=== PATIENT | male | born 1970 | race Caucasian/White ===

== ENCOUNTER 2017-04-20 23:05 | Observation (INO) | payer OTHER ==
[~2017-04-20] VITALS: Ht 172.7 cm; Wt 122.5 kg
[2017-04-20 23:23] VITALS: PULSE 47; PULSE 79
[2017-04-20] MEDS ORDERED: METF500T4 PO (23:34)
[2017-04-20] MEDS ORDERED: POTA10TA18 PO (23:34)
[2017-04-20] MEDS ORDERED: GABA300C16 PO (23:34)
[2017-04-20] MEDS ORDERED: ATOR40TA68 PO (23:34)
[2017-04-20] MEDS ORDERED: NPH,100I5 SQ (23:34)
[2017-04-20] MEDS ORDERED: MELO7.5O PO (23:34)
[2017-04-20] MEDS ORDERED: FURO40SO PO (23:34)
[2017-04-20] MEDS ORDERED: POTA20LI5 PO (23:34)
[2017-04-20] MEDS ORDERED: RIVA15TA PO (23:34)
[2017-04-20] MEDS ORDERED: CARV3.1260 PO (23:34)
[2017-04-20] MEDS ORDERED: LISI20TA11 PO (23:34)
[2017-04-20 23:37] VITALS: Ht 172.7 cm; Wt 122.5 kg
[2017-04-21] VITALS (13 sets, daily range): BP systolic 116–174; BP diastolic 76–117; PULSE 42–83; RESP 15–20
[2017-04-21] MEDS ORDERED: INSULIN GLARGINE [LANtus] 3 ML PEN SC ONE (01:00)
[2017-04-21] MEDS ORDERED: GLUCAGON 1 MG INJ IM PRN (01:30)
[2017-04-21] MEDS ORDERED: GLUCOSE GEL 15 GRAM TUBE PO PRN ×2 (01:30)
[2017-04-21] MEDS ORDERED: GLUCOSE GEL 15 GRAM TUBE BUCCAL PRN (01:30)
[2017-04-21] MEDS ORDERED: DEXTROSE 50% 50 ML SYRINGE IV PRN ×2 (01:30)
[2017-04-21] MEDS: ACCU-CHEK XX SCH ×2 (02:04)
[2017-04-21] MEDS ORDERED: NACL 0.9% 3 ML SYG IV SCH (02:30)
[2017-04-21] MEDS ORDERED: ONDANSETRON 4 MG TAB PO PRN (02:30)
[2017-04-21] MEDS ORDERED: ACETAMINOPHEN 325 MG TAB PO PRN (02:30)
[2017-04-21] MEDS ORDERED: ZOLPIDEM 5 MG TAB PO PRN (02:30)
[2017-04-21] MEDS ORDERED: DOCUSATE SODIUM 100 MG CAP PO PRN (02:30)
[2017-04-21] MEDS: FAMOTIDINE 20 MG TAB PO SCH ×2 (04:21→20:21)
[2017-04-21 07:30] LABS: BASOPHIL # 0.1 10^3/ul (0.0-0.1); BASOPHILS % 1.1 % (0.0-2.0); EOSINOPHILS # 0.2 10^3/ul (0.0-0.5); EOSINOPHILS % 1.9 % (0.0-7.0); HEMATOCRIT 45.5 % (42.0-52.0); HEMOGLOBIN 14.7 g/dl (14.0-18.0); LYMPHOCYTES % 12.2 % (15.0-51.0); MEAN CORPUSCULAR HEMOGLOBIN 30.1 pg (29.0-33.0); MEAN CORPUSCULAR HGB CONC 32.3 g/dl (32.0-37.0); MEAN CORPUSCULAR VOLUME 93.2 fl (82.0-101.0); MEAN PLATELET VOLUME 11.6 fl (7.4-10.4); MONOCYTE # 0.9 10^3/ul (0.3-0.9); MONOCYTES % 10.1 % (0.0-11.0); NEUTROPHIL # 6.3 10^3/ul (1.6-7.5); NEUTROPHILS % 74.5 % (39.0-77.0); PLATELET COUNT 180 10^3/UL (140-415); RED BLOOD COUNT 4.88 10^6/ul (4.70-6.10); RED CELL DISTRIBUTION WIDTH 14.9 % (11.5-14.5); WHITE BLOOD COUNT 8.4 10^3/ul (4.8-10.8)
[2017-04-21 07:45] LABS: D-DIMER 717.64 ng/ml (<460)
[2017-04-21 07:48] LABS: CALCIUM 8.7 mg/dl (8.4-10.2); CHOL/HDL RATIO 3.5 RATIO; CREATININE 0.74 mg/dl (0.61-1.24); POTASSIUM 3.9 mmol/L (3.5-5.1)
[2017-04-21 07:58] LABS: CK-MB 4.3 ng/ml (0.0-2.4); TROPONIN-I 0.074 ng/ml (0.00-0.12)
[2017-04-21] MEDS: GABAPENTIN 300 MG CAP PO SCH ×3 (08:14→20:22)
[2017-04-21] MEDS: metFORMIN 500 MG TAB PO SCH ×2 (08:14→17:22)
[2017-04-21] MEDS: RIVAROXABAN 15 MG TABLET PO SCH ×2 (08:14→20:22)
[2017-04-21] MEDS: LISINOPRIL 20 MG TAB PO SCH (08:15)
[2017-04-21 08:17] LABS: THYROID STIMULATING HORMONE 0.643 MIU/L (0.465-4.680)
[2017-04-21] MEDS: INSULIN ASPART [NOVOLOG] 3 ML PEN SC SCH ×4 (08:18→20:22)
--- NOTE | 2017-04-21 11:17 | HP ---
Date/Time of Note Date/Time of Note DATE: 04/21/17 TIME: 11:17 Assessment/Plan VTE Prophylaxis VTE Prophylaxis Intervention: other (xarelto) Lines/Catheters IV Catheter Type (from [facility]): Saline Lock Assessment/Plan Assessment/Plan [facility] 1. 47yo man with previous myocardial infarctions, diabetes, hypertension, and active smoking, who experienced chest pain last night and presented to [facility] with elevated troponin. Two additional troponins here were stably elevated. Probable NSTEMI, with no active pain, dyspnea, nausea or lightheadedness now. 2. Critical aortic stenosis, awaiting replacement surgery. 3. Type 2 diabetes, with HgbA1c of 8.1% signifying sub-par glucose control. 4. Hyperlipidemia, with measured triglycerides of 150mg/dl and total cholesterol of 66 on Lipitor. 5. Active smoking * Admit to telemetry * Will pursue obtaining dental evaluation on Saturday * Cardiology consultation * Echocardiography performed last month at [facility]; obtain records * Continue carvedilol * Fasting lipids this morning * Nicotine 14mg/24h patch * Famotidine for GI prevention * Urgent smoking cessation * Accuchecks qAC and qHS * Continue Xarelto * Cardiac diet * Obtain old records * Patient is full-code Anoop Seaman MD PhD [phone] HPI/ROS Admit Date/Time Admit Date/Time Apr 20, 2017 at 23:12 Hx of Present Illness 47yo man with critical aortic stenosis, pulmonary embolism on Xarelto, and a history of previous VA and CHF who presented yesterday at [facility] with recurrent chest pain. Aortic valve replacement surgery has been planned for him, pending resolution of issues related to dental problems, but he has not followed-up on these recommendations. Cardiac risk factors include diabetes , hypertension, and active smoking (1 pack per day). He was hospitalized four weeks ago at [facility] for a possible CHF exacerbation, after presenting at [facility] ER with dyspnea but no chest pain. Most recent EF on echo was 40%. Records from that hospitalization indicate he had an VA in January, presenting at [facility], where he was also diagnosed with a deep venous thrombosis and pulmonary embolism. He subsequently was off Xarelto for a period of weeks. He uses nighttime oxygen, and an issue of possible obstructive sleep apnea has been raised. Cardiac surgery evaluation for an aortic valve area of 0.9cm2 performed by Dr. Jose. ROS No headache, visual change, radiation to the arms or back, nausea, or change in bowel habitus. 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 Smoking Status: Current every day smoker Exam/Review of Systems Vital Signs Vitals Vital Signs Date Time Temp Pulse Resp B/P Pulse Ox O2 Delivery O2 Flow Rate FiO2 04/21/17 08:30 Nasal Cannula 2.0 04/21/17 08:22 98.6 77 18 174/117 97 Intake and Output 04/20/17 04/20/17 04/21/17 15:00 23:00 07:00 Intake Total 250 ml Balance 250 ml Exam Constitutional: alert, oriented, well developed Psych: nl mood/affect, no complaints, No anxiety, No confusion, No depression Head: atraumatic, normocephalic Eyes: EOMI, PERRL, nl conjunctiva ENMT: mucosa pink and moist Neck: non-tender, supple, No bruits, No jvd, No masses, No nuchal rigidity, No thyromegaly Respiratory: clear to auscultation, normal air movement, No congested cough, No crackles/rales, No diminished breath sounds, No intercostal retraction, No labored breathing, No respirations, No wheezing Cardiovascular: nl pulses, regular rate and rhythm, systolic murmur Gastrointestinal: bowel sounds, nl liver, spleen, non-tender, soft, No ascites, No distended, No firm, No hepatomegaly, No mass, No rebound or guarding, No splenomegaly Genitourinary - Male: No CVA tenderness Musculoskeletal: muscle tone, nl extremities to inspection, range of motion, No joint tenderness, No muscle weakness, No spine non-tender, No swelling Extremities: normal pulses, No calf tenderness, No clubbing, No cyanosis, No edema, No palpable cord, No pitting pedal edema, No tenderness Neurological: GOVERNMENT AUDITOR II-XII intact, DTR's symmetric, nl mental status, nl speech, nl strength Skin: nl turgor, No diaphoresis, No ecchymosis, No laceration, No rash or lesions Lymph: nl lymph nodes Labs Result Diagram: 04/21/17 0649 04/21/17 0649 Medications Medications Current Medications Diagnostic Test (Pha) (Accu-Chek) 1 ea 02 XX Last administered on 04/21/17 02 :04; Admin Dose 1 EA; Start 04/21/17 at 02:00 Diagnostic Test (Pha) (Accu-Chek) 1 ea XX Last administered on 04/21/17 02 :04; Admin Dose 1 EA; Start 04/21/17 at 02:00 Miscellaneous Information 1 ea NOTE XX ; Start 04/21/17 at 01:30 Glucose (Glutose) 15 gm Q15M PRN PO DECREASED GLUCOSE; Start 04/21/17 at 01:30 Glucose (Glutose) 22.5 gm Q15M PRN PO DECREASED GLUCOSE; Start 04/21/17 at 01: 30 Dextrose (D50w Syringe) 25 ml Q15M PRN IV DECREASED GLUCOSE; Start 04/21/17 at 01:30 Dextrose (D50w Syringe) 50 ml Q15M PRN IV DECREASED GLUCOSE; Start 04/21/17 at 01:30 Glucagon (Glucagen) 1 mg Q15M PRN IM DECREASED GLUCOSE; Start 04/21/17 at 01: 30 Glucose (Glutose) 15 gm Q15M PRN BUCCAL DECREASED GLUCOSE; Start 04/21/17 at 01:30 Ondansetron HCl (Zofran Tab) 4 mg Q6H PRN PO NAUSEA AND/OR VOMITING; Start at 02:30 Acetaminophen (Tylenol Tab) 650 mg Q6H PRN PO PAIN LEVEL 1-3 OR FEVER; Start 04/21/17 at 02:30 Acetaminophen/ Hydrocodone Bitart ([place] (5/325)) 1 tab Q6H PRN PO PAIN LEVEL 4 -6; Start 04/21/17 at 02:30 Zolpidem Tartrate (Ambien) 5 mg QHS PRN PO INSOMNIA; Start 04/21/17 at 02:30 Docusate Sodium (Colace) 100 mg Q12H PRN PO CONSTIPATION; Start 04/21/17 at 02 :30 Famotidine (Pepcid) 20 mg Q12 PO Last administered on 04/21/17 04:21; Admin Dose 20 MG; Start 04/21/17 at 02:30 Atorvastatin Calcium (Lipitor) 40 mg QHS PO ; Start 04/21/17 at 21:00 Carvedilol (Coreg) 3.125 mg BID PO Last administered on 04/21/17 08:15; Admin Dose 3.125 MG; Start 04/21/17 at 09:00 Gabapentin (Neurontin) 600 mg TID PO Last administered on 04/21/17 08:14; Admin Dose 600 MG; Start 04/21/17 at 09:00 Lisinopril (Zestril) 20 mg DAILY PO Last administered on 04/21/17 08:15; Admin Dose 20 MG; Start 04/21/17 at 09:00 Rivaroxaban (Xarelto) 15 mg BID PO Last administered on 04/21/17 08:14; Admin Dose 15 MG; Start 04/21/17 at 09:00 Insulin Glargine (Lantus) 40 unit DAILY@20 SC ; Start 04/21/17 at 20:00 Influenza Virus Vaccine (Fluzone) 0.5 ml ONCE ONCE IM* ; Start 04/22/17 at 09: 00; Stop 04/22/17 at 09:01 ARIANNA SEAMAN M.D. Apr 21, 2017 11:17
[2017-04-21] MEDS ORDERED: hydrALAzine 20 MG INJ IV PRN (11:30)
[2017-04-21 11:36] LABS: TROPONIN-I 0.056 ng/ml (0.00-0.12)
[2017-04-21 12:04] LABS: CK-MB 4.17 ng/ml (0.0-2.4)
[2017-04-21] MEDS: ATORVASTATIN 40 MG TAB PO SCH (20:22)
[2017-04-21] MEDS: INSULIN GLARGINE [LANtus] 3 ML PEN SC SCH (20:25)
[2017-04-22] VITALS (12 sets, daily range): BP systolic 124–160; BP diastolic 85–103; PULSE 60–78; RESP 19–20
[2017-04-22] MEDS: ACCU-CHEK XX SCH ×2 (02:31)
[2017-04-22] MEDS: HYDROCODONE/APAP (5/325) TAB PO PRN ×3 (04:03→21:15)
[2017-04-22] MEDS: INSULIN ASPART [NOVOLOG] 3 ML PEN SC SCH ×4 (08:00→21:00)
[2017-04-22] MEDS ORDERED: INFLUENZA VIRUS VACCINE 0.5 ML (DISPENSING) IM* ONE (09:00)
[2017-04-22] MEDS: GABAPENTIN 300 MG CAP PO SCH ×3 (09:00→21:16)
[2017-04-22] MEDS: RIVAROXABAN 15 MG TABLET PO SCH (09:00)
[2017-04-22] MEDS ORDERED: NICOTINE (14 MG/24 HR) PATCH TRANSDERM SCH (09:00)
[2017-04-22] MEDS: FAMOTIDINE 20 MG TAB PO SCH ×2 (09:01→21:16)
[2017-04-22] MEDS: LISINOPRIL 20 MG TAB PO SCH (09:01)
[2017-04-22] MEDS: metFORMIN 500 MG TAB PO SCH ×2 (09:01→17:31)
--- NOTE | 2017-04-22 17:55 | CONS ---
Date/Time of Note Date/Time of Note DATE: 04/22/17 TIME: 17:49 Assessment/Plan Assessment/Plan Additional Assessment/Plan Chest pain Severe aortic stenosis Coronary artery disease Pulmonary emboli Hypertension Medication compliance Active tobacco use -Patient with known history of aortic stenosis and coronary disease and he is pending aortic valve replacement and CABG. Patient was to have a dental evaluation but unfortunately has not been compliant. Furthermore he has been noncompliant with medications as well as continued smoking. Troponins at outside facility initial was 0.11 but serial troponins done at our facility have all been unremarkable. Agree with antiplatelet therapy, anticoagulation, lipid management. Of importance is patient to be compliant with medications, smoking cessation and dental workup to proceed with his known cardiac issues. Would consider adjusting anticoagulant dosing Consultation Date/Type/Reason Admit Date/Time Apr 20, 2017 at 23:12 Type of Consultation: cv Reason for Consultation Chest pain Hx of Present Illness This is a 47-year-old male with history of aortic stenosis, coronary artery disease, pulmonary emboli, active tobacco use who presents with chest pain. Symptoms began approximately day and a half ago. Symptoms are occasionally worse with activity. He feels much better today. He does admit to noncompliance with his medications. He has been seeing a CT surgeon for aortic valve replacement and likely concurrent CABG but has not followed up with dental evaluation for clearance. He does still actively smoke and is noncompliant with his medications. He currently denies any chest pain, shortness of breath, abdominal pain, cough or fevers or chills. 12 point review of systems was performed with all pertinent positives and negatives mentioned above and all else is negative Psychological: nl mood/affect, no complaints, No anxiety, No confusion, No depression Past Medical History Medical History: congestive heart failure, coronary artery disease, deep vein thrombosis, diabetes, high cholesterol, hypertension, other (Severe obesity, previously 175 kg but has lost weight to current 122kg.) Social History Smoking Status: Current every day smoker Exam/Review of Systems Vital Signs Vitals Vital Signs Date Time Temp Pulse Resp B/P Pulse Ox O2 Delivery O2 Flow Rate FiO2 04/22/17 16:00 78 04/22/17 15:49 98.0 20 124/88 98 04/22/17 08:00 Nasal Cannula 2.0 Intake and Output 04/21/17 04/21/17 04/22/17 15:00 23:00 07:00 Intake Total 960 ml 500 ml Balance 960 ml 500 ml Exam No apparent distress, able to speak in complete sentences Constitutional: alert, obese, oriented Head: normocephalic Respiratory: other (Coarse breath sounds bilaterally, no wheezing) Cardiovascular: regular rate and rhythm, systolic murmur Gastrointestinal: bowel sounds, non-tender, soft Extremities: edema (Trace) Results Result Diagram: 04/21/17 0649 04/21/17 0649 Results 24 hrs Laboratory Tests Test 04/21/17 20:20 04/22/17 02:30 04/22/17 08:04 04/22/17 12:06 Bedside Glucose 119 122 104 106 Test 04/22/17 17:30 Bedside Glucose 177 Medications Medications Current Medications Diagnostic Test (Pha) (Accu-Chek) 1 ea 02 XX Last administered on 04/22/17 02 :31; Admin Dose 1 EA; Start 04/21/17 at 02:00 Diagnostic Test (Pha) (Accu-Chek) 1 ea 02 XX Last administered on 04/22/17 02 :31; Admin Dose 1 EA; Start 04/21/17 at 02:00 Miscellaneous Information 1 ea NOTE XX ; Start 04/21/17 at 01:30 Glucose (Glutose) 15 gm Q15M PRN PO DECREASED GLUCOSE; Start 04/21/17 at 01:30 Glucose (Glutose) 22.5 gm Q15M PRN PO DECREASED GLUCOSE; Start 04/21/17 at 01: 30 Dextrose (D50w Syringe) 25 ml Q15M PRN IV DECREASED GLUCOSE; Start 04/21/17 at 01:30 Dextrose (D50w Syringe) 50 ml Q15M PRN IV DECREASED GLUCOSE; Start 04/21/17 at 01:30 Glucagon (Glucagen) 1 mg Q15M PRN IM DECREASED GLUCOSE; Start 04/21/17 at 01: 30 Glucose (Glutose) 15 gm Q15M PRN BUCCAL DECREASED GLUCOSE; Start 04/21/17 at 01:30 Ondansetron HCl (Zofran Tab) 4 mg Q6H PRN PO NAUSEA AND/OR VOMITING; Start at 02:30 Acetaminophen (Tylenol Tab) 650 mg Q6H PRN PO PAIN LEVEL 1-3 OR FEVER Last administered on 04/22/17 09:00; Admin Dose 650 MG; Start 04/21/17 at 02:30 Acetaminophen/ Hydrocodone Bitart ([place] (5/325)) 1 tab Q6H PRN PO PAIN LEVEL 4 -6 Last administered on 04/22/17 13:10; Admin Dose 1 TAB; Start 04/21/17 at 02:30 Zolpidem Tartrate (Ambien) 5 mg QHS PRN PO INSOMNIA; Start 04/21/17 at 02:30 Docusate Sodium (Colace) 100 mg Q12H PRN PO CONSTIPATION; Start 04/21/17 at 02 :30 Famotidine (Pepcid) 20 mg Q12 PO Last administered on 04/22/17 09:01; Admin Dose 20 MG; Start 04/21/17 at 02:30 Atorvastatin Calcium (Lipitor) 40 mg QHS PO Last administered on 04/21/17 20: 22; Admin Dose 40 MG; Start 04/21/17 at 21:00 Carvedilol (Coreg) 3.125 mg BID PO Last administered on 04/22/17 09:01; Admin Dose 3.125 MG; Start 04/21/17 at 09:00 Gabapentin (Neurontin) 600 mg TID PO Last administered on 04/22/17 12:07; Admin Dose 600 MG; Start 04/21/17 at 09:00 Lisinopril (Zestril) 20 mg DAILY PO Last administered on 04/22/17 09:01; Admin Dose 20 MG; Start 04/21/17 at 09:00 Rivaroxaban (Xarelto) 15 mg BID PO Last administered on 04/22/17 09:00; Admin Dose 15 MG; Start 04/21/17 at 09:00 Insulin Glargine (Lantus) 40 unit DAILY@20 SC Last administered on 04/21/17 20:25; Admin Dose 40 UNIT; Start 04/21/17 at 20:00 Hydralazine HCl (Apresoline) 10 mg Q4H PRN IV SBP > 160; Start 04/21/17 at 11: 30 Nicotine (Nicoderm 14 Mg/ 24hr) 1 patch DAILY TRANSDERM Last administered on 09:02; Admin Dose 1 PATCH; Start 04/22/17 at 09:00 Procedures Procedures ECG done 102 demonstrates sinus rhythm at 79 bpm, incomplete left bundle branch block with QRS 116 ms, no significant STT wave abnormalities Anil Rodriguez DO Apr 22, 2017 17:55
--- NOTE | 2017-04-22 18:55 | PN ---
Date/Time of Note Date/Time of Note DATE: 04/22/17 TIME: 18:39 Assessment/Plan VTE Prophylaxis VTE Prophylaxis Intervention: other (On Xarelto) Lines/Catheters IV Catheter Type (from [place]): Saline Lock Assessment/Plan Assessment/Plan 47 yo man: 1. Chest pain with known myocardial infarction and critical aortic stenosis who presented at [place] with chest pain, reported elevated troponin, troponin has been negative here at [facility]. Patient apparently also with a history of pulmonary embolus for which he has been on Xarelto until recently when he decided to stop it for unclear reason, I have discussed with cardiology and the patient he will resume his Xarelto 20 mg p.o. daily. Cardiac enzymes have been negative here, patient has been evaluated by cardiology, he has a pending aortic valve replacement and already being seen by cardiothoracic surgery, they are still waiting for the patient to take care of his dentition prior to scheduling him for surgery. Patient today states that he will go to the dentist as soon as possible. Per cardiology okay to discharge patient today. Patient also needs to be more compliant with medications and tobacco cessation. He still smoking. 2. Type 2 diabetes, with HgbA1c of 8.1. Continue home medications. Patient is more compliant with diet and medication. Weight loss is encouraged 3. Hyperlipidemia: Continue statins 4. Reported pulmonary embolus: Patient to resume his Xarelto at home, he has been encouraged to stay on it for treatment of pulmonary embolus, he can resume his maintenance dosage of 20 mg daily. 5. Chronic hypoxemia, patient is oxygen dependent at home, apparently he takes off the oxygen to go smoke. 6. Tobacco use, still actively smoking Prophylaxis: Patient already on Xarelto, Pepcid for GI prophylaxis if needed Disposition: Appreciate cardiology evaluation, okay to discharge home today, patient is to follow-up urgently with a dentist so that he can have his evaluation and treatment required as an outpatient and proceed with his cardiac surgery afterwards. Exam/Review of Systems Vital Signs Vitals Vital Signs Date Time Temp Pulse Resp B/P Pulse Ox O2 Delivery O2 Flow Rate FiO2 04/22/17 16:00 78 04/22/17 15:49 98.0 20 124/88 98 04/22/17 08:00 Nasal Cannula 2.0 Intake and Output 04/21/17 04/21/17 04/22/17 15:00 23:00 07:00 Intake Total 960 ml 500 ml Balance 960 ml 500 ml Exam Constitutional: alert, obese (Morbid), oriented Respiratory: clear to auscultation, normal air movement Cardiovascular: murmurs/extra sounds (Critical aortic stenosis), nl pulses, regular rate and rhythm Gastrointestinal: non-tender, soft Musculoskeletal: nl extremities to inspection Extremities: normal pulses, other (No edema, clubbing or cyanosis) Neurological: ELECTRICAL ESTIMATOR II-XII intact, nl mental status, nl speech, nl strength Results Result Diagram: 04/21/17 0649 04/21/17 0649 Results 24 hrs Laboratory Tests Test 04/21/17 20:20 04/22/17 02:30 04/22/17 08:04 04/22/17 12:06 Bedside Glucose 119 122 104 106 Test 04/22/17 17:30 Bedside Glucose 177 Medications Medications Current Medications Diagnostic Test (Pha) (Accu-Chek) 1 ea 02 XX Last administered on 04/22/17 02 :31; Admin Dose 1 EA; Start 04/21/17 at 02:00 Diagnostic Test (Pha) (Accu-Chek) 1 ea 02 XX Last administered on 04/22/17 02 :31; Admin Dose 1 EA; Start 04/21/17 at 02:00 Miscellaneous Information 1 ea NOTE XX ; Start 04/21/17 at 01:30 Glucose (Glutose) 15 gm Q15M PRN PO DECREASED GLUCOSE; Start 04/21/17 at 01:30 Glucose (Glutose) 22.5 gm Q15M PRN PO DECREASED GLUCOSE; Start 04/21/17 at 01: 30 Dextrose (D50w Syringe) 25 ml Q15M PRN IV DECREASED GLUCOSE; Start 04/21/17 at 01:30 Dextrose (D50w Syringe) 50 ml Q15M PRN IV DECREASED GLUCOSE; Start 04/21/17 at 01:30 Glucagon (Glucagen) 1 mg Q15M PRN IM DECREASED GLUCOSE; Start 04/21/17 at 01: 30 Glucose (Glutose) 15 gm Q15M PRN BUCCAL DECREASED GLUCOSE; Start 04/21/17 at 01:30 Ondansetron HCl (Zofran Tab) 4 mg Q6H PRN PO NAUSEA AND/OR VOMITING; Start at 02:30 Acetaminophen (Tylenol Tab) 650 mg Q6H PRN PO PAIN LEVEL 1-3 OR FEVER Last administered on 04/22/17 09:00; Admin Dose 650 MG; Start 04/21/17 at 02:30 Acetaminophen/ Hydrocodone Bitart ([place] (5/325)) 1 tab Q6H PRN PO PAIN LEVEL 4 -6 Last administered on 04/22/17 13:10; Admin Dose 1 TAB; Start 04/21/17 at 02:30 Zolpidem Tartrate (Ambien) 5 mg QHS PRN PO INSOMNIA; Start 04/21/17 at 02:30 Docusate Sodium (Colace) 100 mg Q12H PRN PO CONSTIPATION; Start 04/21/17 at 02 :30 Famotidine (Pepcid) 20 mg Q12 PO Last administered on 04/22/17 09:01; Admin Dose 20 MG; Start 04/21/17 at 02:30 Atorvastatin Calcium (Lipitor) 40 mg QHS PO Last administered on 04/21/17 20: 22; Admin Dose 40 MG; Start 04/21/17 at 21:00 Carvedilol (Coreg) 3.125 mg BID PO Last administered on 04/22/17 09:01; Admin Dose 3.125 MG; Start 04/21/17 at 09:00 Gabapentin (Neurontin) 600 mg TID PO Last administered on 04/22/17 12:07; Admin Dose 600 MG; Start 04/21/17 at 09:00 Lisinopril (Zestril) 20 mg DAILY PO Last administered on 04/22/17 09:01; Admin Dose 20 MG; Start 04/21/17 at 09:00 Rivaroxaban (Xarelto) 15 mg BID PO Last administered on 04/22/17 09:00; Admin Dose 15 MG; Start 04/21/17 at 09:00 Insulin Glargine (Lantus) 40 unit DAILY@20 SC Last administered on 04/21/17 20:25; Admin Dose 40 UNIT; Start 04/21/17 at 20:00 Hydralazine HCl (Apresoline) 10 mg Q4H PRN IV SBP > 160; Start 04/21/17 at 11: 30 Nicotine (Nicoderm 14 Mg/ 24hr) 1 patch DAILY TRANSDERM Last administered on t 09:02; Admin Dose 1 PATCH; Start 04/22/17 at 09:00 SEAN TEJADA Apr 22, 2017 18:52
--- NOTE | 2017-04-22 18:56 | PDOCDIS ---
Discharge Instructions CONDITION Patient Condition: Stable HOME CARE INSTRUCTIONS: Special Diet: CARDIAC ACTIVITY: Activity Restrictions: Slowly Increase Activity FOLLOW UP/APPOINTMENTS Follow-up Plan Follow-up with primary care physician within 1 week Follow-up with a dentist urgently within 24-48 hours Follow-up with cardiothoracic surgery after dentist is seen and at the appropriate dental work is done Follow-up with cardiology as outpatient and as needed within 1-2 weeks SEAN TEJADA Apr 22, 2017 18:56
[2017-04-22] MEDS ORDERED: NICO1PAT6 TD (18:58)
[2017-04-22] MEDS ORDERED: RIVA20TA PO (18:58)
[2017-04-22] MEDS ORDERED: RIVAROXABAN 20 MG TABLET PO SCH (19:30)
[2017-04-22] MEDS: ATORVASTATIN 40 MG TAB PO SCH (21:16)
[2017-04-22] MEDS: INSULIN GLARGINE [LANtus] 3 ML PEN SC SCH (21:27)
--- NOTE | 2017-04-23 14:04 | RADRPT ---
Echocardiogram Report Patient Name: MARCELL PADILLA Gender: Male Date: 1970 Study Date: 22-Apr-2017 Ship'[employer] Carpenter: NAOMIE Location: 5548 Ref. Physician: ANIL RODRIGUEZ Quality: Good Procedures: Transthoracic echocardiogram with complete 2D, M-Mode, and doppler examination. Indications: Congestive Heart Failure. 2D/M Mode Doppler Measurement Value Normal Ranges Measurement Value Normal Ranges AoR Diam MM 3.1 cm MADHAVI Vmax 1.0 cm2 LA/Ao MM 1.4 MADHAVI VTI 1.0 cm2 LA Dimen MM 4.4 cm AV Mean Ghassan 2.3 m/sec LVIDd 2D 6.2 3.5 - 5.6 cm AV Mean PG 23.6 mmHg LVIDs 2D 5.7 2.1 - 4.1 cm AV Peak Ghassan 3.3 m/sec LVPWd 2D 1.4 0.6 - 1.1 cm AV Peak PG 43.0 mmHg IVSd 2D 1.4 0.6 - 1.1 cm AV VTI 68.7 cm EDV 2D 195.2 cm3 LVOT Mean Ghassan 0.9 m/sec ESV 2D 180.7 cm3 LVOT Mean PG 3.2 mmHg LVOT Diam 1.9 cm LVOT Peak Ghassan 1.1 m/sec LVOT Peak PG 5.2 mmHg LVOT VTI 24.5 cm MV E Peak Ghassan 0.9 m/sec MV A Peak Ghassan 0.6 m/sec MV E/A 1.6 MV Decel Time 105 msec MV Decel [place] 9 MV E/A 1.6 TR Peak Ghassan 2.8 m/sec TR Peak PG 32.2 mmHg RVSP 40.0 mmHg RA Pressure 8.0 Findings Left Ventricle: Mild concentric left ventricular hypertrophy. Moderate enlargement of left ventricle cavity. Severe left ventricular systolic dysfunction. Ejection fraction is visually estimated at 25 %. Tissue Doppler/Mitral Doppler indices are consistent with pseudonormalization with mildly elevated left atrial pressure (Stage II diastolic dysfunction). Right Ventricle: Normal right ventricular size. Moderate right ventricular systolic dysfunction. Left Atrium: There is mild enlargement of left atrium. Right Atrium: Right atrium at upper limits of normal. Mitral Valve: Normal appearance and function of the mitral valve with trace physiologic regurgitation. Aortic Valve: Moderate aortic stenosis. Mean PG 23.60 mmHg. Aortic cusps appear moderate-severely calcified. Mild aortic valve regurgitation. Tricuspid Valve: Normal appearance of the tricuspid valve. Estimated peak PA systolic pressure 40 mmHg. There is mild tricuspid regurgitation. Pulmonic Valve: Normal pulmonic valve appearance. There is trace pulmonic regurgitation. Pericardium: Normal pericardium with no significant pericardial effusion. Aorta: Normal aortic root. IVC: Dilated IVC with respiratory collapse consistent with elevated right atrial pressure. Conclusions 1.Mild concentric left ventricular hypertrophy. Moderate enlargement of left ventricle cavity. Severe left ventricular systolic dysfunction. Ejection fraction is visually estimated at 25 %. Tissue Doppler/Mitral Doppler indices are consistent with pseudonormalization with mildly elevated left atrial pressure (Stage II diastolic dysfunction). 2.Normal right ventricular size. Moderate right ventricular systolic dysfunction. 3.There is mild enlargement of left atrium. 4.Right atrium at upper limits of normal. 5.Moderate aortic stenosis. Mild aortic valve regurgitation. 6.Estimated peak PA systolic pressure 40 mmHg. There is mild tricuspid regurgitation. 7.Normal appearance and function of the mitral valve with trace physiologic regurgitation. 8.Normal pericardium with no significant pericardial effusion. Electronically Signed By: Anil Rodriguez 23-Apr-2017 14:03:29 0700 Patient Name: MARCELL PADILLA Study Date: 22-Apr-2017 [id number]
[2017-04-23] MEDS ORDERED: RIVAROXABAN 20 MG TABLET PO SCH (18:05)
== END 2017-04-22 23:04 | disposition home or self-care (01) ==
LOC: MS4 23:12 → INTOOBSV 23:12
PROVIDERS: ADMIT Internal Medicine; ATTEND Internal Medicine
DX: R07.9 Chest pain, unspecified (principal); I35.0 Nonrheumatic aortic (valve) stenosis; I25.10 Atherosclerotic heart disease of native coronary artery without angina pectoris; I26.99 Other pulmonary embolism without acute cor pulmonale; E11.9 Type 2 diabetes mellitus without complications; E78.5 Hyperlipidemia, unspecified; R09.02 Hypoxemia; Z99.81 Dependence on supplemental oxygen; Z72.0 Tobacco use; I11.0 Hypertensive heart disease with heart failure; I50.9 Heart failure, unspecified; E78.00 Pure hypercholesterolemia, unspecified; E66.9 Obesity, unspecified; Z68.41 Body mass index [BMI] 40.0-44.9, adult; Z79.4 Long term (current) use of insulin; Z23 Encounter for immunization; Z83.3 Family history of diabetes mellitus
CPT/HCPCS: 80048; 80061; 82550; 82553; 82962; 83036; 84443; 84484; 85025; 85378; 85651; 90686; 93306; J1815; Z7500; Z7610; 99217; G0378

== ENCOUNTER 2017-05-06 19:07 | Emergency (ER) | payer OTHER ==
[~2017-05-06] VITALS: Ht 172.7 cm; Wt 113.6 kg
[~2017-05-06 19:07] MED LIST: ATOR40TA68 PO; CARV3.1260 PO; FURO40SO PO; GABA300C16 PO; LISI20TA11 PO; MELO7.5O PO; METF500T4 PO; NICO1PAT6 TD; NPH,100I5 SQ; POTA10TA18 PO; POTA20LI5 PO; RIVA20TA PO
[2017-05-06] MEDS ORDERED: FUROSEMIDE 40 MG INJ ONE (19:12)
[2017-05-06] MEDS ORDERED: ASPIRIN 81 MG TAB ONE (19:13)
[2017-05-06] MEDS ORDERED: NITROGLYCERIN 2% 1 GM OINT PKT ONE (19:13)
[2017-05-06] MEDS ORDERED: NITROGLYCERIN (SL) 0.4 MG TAB ONE (20:41)
[2017-05-06] MEDS ORDERED: FUROSEMIDE 40 MG INJ IV SCH (22:30)
[2017-05-06] MEDS ORDERED: ASPIRIN 81 MG TAB PO SCH (22:30)
[2017-05-06] MEDS ORDERED: NITROGLYCERIN 2% 1 GM OINT PKT TD SCH (22:30)
[2017-05-06] MEDS ORDERED: LISINOPRIL 20 MG TAB PO SCH (22:30)
[2017-05-06] MEDS ORDERED: hydrALAzine 20 MG INJ ONE (22:54)
[2017-05-06] MEDS ORDERED: hydrALAzine 20 MG INJ IV ONE (23:00)
[2017-05-07] MEDS ORDERED: ONDANSETRON 4 MG INJ IV PRN (00:30)
[2017-05-07] MEDS ORDERED: hydrALAzine 20 MG INJ IV PRN (00:30)
[2017-05-07] MEDS ORDERED: AZITHROMYCIN 500 MG in SOD CHLORIDE 0.9% 250 ML IVPB SCH (01:00)
[2017-05-07] MEDS ORDERED: ACCU-CHEK XX SCH (02:00)
[2017-05-07] MEDS: ALBUTEROL/IPRATROPIUM (NEB) 3 ML AMP HHN SCH ×2 (02:15→09:34)
[2017-05-07 06:00] VITALS: TEMP 97.9
--- NOTE | 2017-05-07 07:35 | RADRPT ---
PROCEDURE: XR Chest AP portable CLINICAL INDICATION: Short of breath TECHNIQUE: An AP portable radiograph of the chest was submitted. COMPARISON: None. FINDINGS: Support Hardware: None Cardiovascular: The heart is moderately enlarged and the pulmonary vasculature appears congested. Lung Stewart: Diffusely increased interstitial markings are evident suspicious for interstitial edema slightly exaggerated by a poor inspiratory effort. Pleural Spaces: No pneumothorax or pleural effusion is identified. Osseous Structures: The osseous structures appear intact. Soft Tissues: The soft tissues appear generous. IMPRESSION: Moderate cardiomegaly with pulmonary vascular congestion and interstitial edema. Physician Pritesh Date Time Electronically viewed and signed by Physician Pritesh on 05/06/2017 20:50 RH/
[2017-05-07] MEDS ORDERED: FUROSEMIDE 40 MG INJ IV ONE (08:00)
[2017-05-07] MEDS ORDERED: INSULIN GLARGINE [LANtus] 3 ML PEN SC SCH (08:00)
[2017-05-07] MEDS ORDERED: INSULIN ASPART [NOVOLOG] 3 ML PEN SC SCH (08:00)
[2017-05-07] MEDS ORDERED: CEFTRIAXONE 1 GM/50 ML (PMX) 50 ML IVPB SCH (09:00)
--- NOTE | 2017-05-07 09:25 | ERD ---
ER Documentation Chief Complaint Chief Complaint SOB x 1 day, sent by PMD for chronic CHF and SOB HPI Patient is a 47-year-old male with coronary disease, CHF, and diabetes who presents with shortness of breath. He said it started this morning but worsened as the day went on. He has had a dry cough. He says "I think there is fluid on my lungs". He has bilateral lower extremity swelling. He admits to midsternal chest pain which he believes is from the shortness of breath. He uses 2 L of nasal cannula oxygen at home. He did not run out of oxygen at home as initially thought in triage he just did not bring his oxygen to the emergency department. ROS All systems reviewed and are negative except as per history of present illness. Medications Home Meds Active Scripts Rivaroxaban* (Xarelto*) 20 Mg Tablet, 20 MG PO WITH DINNER for 30 Days, TAB 3 Refills Prov:SEAN TEJADA 04/22/17 Nicotine* (Nicotine* Patch) 21 mg/day Patch, 1 EACH TD DAILY for 30 Days, PATCH 3 Refills Prov:SEAN TEJADA 04/22/17 Reported Medications NPH, Human Insulin Isophane (Humulin N Kwikpen) 100 Unit/1 Ml Insuln.pen, 40 UNIT SQ DAILY, EA 04/20/17 Potassium Chloride* (Potassium Chloride*) 20 Meq/15 Ml Liquid, 20 MEQ PO DAILY, ML 04/20/17 Potassium Citrate* (Potassium Citrate* ER) 10 Meq Tablet.sa, 10 MEQ PO DAILY, TAB.SA 04/20/17 Furosemide* (Furosemide*) 40 Mg/5 Ml Solution, 40 MG PO DAILY, #150 ML 04/20/17 Carvedilol* (Carvedilol*) 3.125 Mg Tablet, 3.125 MG PO BID, #60 TAB 04/20/17 Meloxicam* (Meloxicam*) 7.5 Mg/5 Ml Oral.susp, 15 MG PO DAILY, #300 ML 04/20/17 Metformin Hcl* (Metformin Hcl*) 500 Mg Tablet, 500 MG PO BID WITH MEALS, #90 TAB 04/20/17 Lisinopril* (Lisinopril*) 20 Mg Tablet, 20 MG PO DAILY, #30 TAB 04/20/17 Gabapentin* (Gabapentin*) 300 Mg Capsule, 600 MG PO TID, #180 CAP 04/20/17 Atorvastatin* (Atorvastatin*) 40 Mg Tablet, 40 MG PO QHS, #30 TAB 04/20/17 Allergies Allergies: Coded Allergies: No Known Allergy (Unverified , 05/07/17) PMhx/Soc History of Surgery: Yes (angioplasty) Anesthesia Reaction: No Hx Neurological Disorder: No Hx Respiratory Disorders: Yes (BLOOD CLOT IN THE LUNGS) Hx Cardiac Disorders: Yes (AORTIC VALVE PROBLEM, HLD, HTN, AMI) Hx Psychiatric Problems: No Hx Miscellaneous Medical Probl: No Hx Alcohol Use: No Hx Substance Use: No Hx Tobacco Use: Yes Smoking Status: Current every day smoker FmHx Family History: coronary disease, diabetes Physical Exam Vitals Vital Signs Date Time Temp Pulse Resp B/P Pulse Ox O2 Delivery O2 Flow Rate FiO2 05/07/17 06:00 97.9 76 16 123/89 95 BIPAP 2.0 Nasal Cannula 05/07/17 05:00 73 100 35 05/07/17 03:15 82 16 122/91 100 BIPAP 05/07/17 03:00 85 98 35 05/07/17 02:25 88 24 96 21 05/07/17 01:00 88 96 35 05/07/17 00:18 81 20 123/84 100 BIPAP 05/06/17 23:30 89 95 35 05/06/17 22:35 98.7 82 16 170/118 100 BIPAP 05/06/17 21:10 88 96 35 05/06/17 20:20 98.7 68 22 171/114 100 BIPAP 05/06/17 19:10 98.6 87 16 138/99 95 BIPAP 05/06/17 19:10 98.9 83 185/86 93 Physical Exam Const: Moderate distress secondary to shortness of breath Head: Atraumatic Eyes: Normal Conjunctiva ENT: Normal External Ears, Nose and Mouth. Neck: Full range of motion..~ No meningismus. Resp: Decreased breath sounds bilaterally Cardio: Regular rate and rhythm, no murmurs Abd: Soft, obese Skin: No petechiae or rashes Back: No midline or flank tenderness Ext: No cyanosis, or edema Neur: Awake but falls asleep easily Result Diagram: 05/07/1751605/07/17516 Results 24 hrs Laboratory Tests Test 05/06/17 19:00 05/07/17 03:11 05/07/17 05:17 05/07/17 07:00 White Blood Count 10.010^3/ul 11.510^3/ul Red Blood Count 4.9110^6/ul 4.6210^6/ul Hemoglobin 14.5g/dl 13.5g/dl Hematocrit 45.7% 42.8% Mean Corpuscular Volume 93.1fl 92.6fl Mean Corpuscular Hemoglobin 29.5pg 29.2pg Mean Corpuscular Hemoglobin Concent 31.7g/dl 31.5g/dl Red Cell Distribution Width 15.5% 15.9% Platelet Count 99703^3/UL 15207^3/UL Mean Platelet Volume 11.3fl 11.1fl Neutrophils % 72.5% 79.0% Lymphocytes % 11.7% 8.0% Monocytes % 12.9% 10.8% Eosinophils % 1.8% 1.1% Basophils % 1.0% 0.8% Nucleated Red Blood Cells % 0.0/100WBC 0.0/100WBC Neutrophils # 7.210^3/ul 9.010^3/ul Lymphocytes # 1.210^3/ul 0.910^3/ul Monocytes # 1.310^3/ul 1.210^3/ul Eosinophils # 0.210^3/ul 0.110^3/ul Basophils # 0.110^3/ul 0.110^3/ul Nucleated Red Blood Cells # 0.010^3/ul 0.010^3/ul Prothrombin Time 15.3Sec Prothrombin Time Ratio 1.2 INR International Normalized Ratio 1.20 Activated Partial Thromboplast Time 29.2Sec Sodium Level 143mmol/L 143mmol/L Potassium Level 4.1mmol/L 4.4mmol/L Chloride Level 106mmol/L 107mmol/L Carbon Dioxide Level 31mmol/L 31mmol/L Anion Gap 10 9 Blood Urea Nitrogen 18mg/dl 18mg/dl Creatinine 0.95mg/dl 0.90mg/dl Glucose Level 183mg/dl 185mg/dl Calcium Level 8.8mg/dl 8.4mg/dl Total Bilirubin 1.3mg/dl 1.1mg/dl Direct Bilirubin 0.00mg/dl 0.00mg/dl Indirect Bilirubin 1.3mg/dl 1.1mg/dl Aspartate Amino Transf (AST/SGOT) 37IU/L 36IU/L Alanine Aminotransferase (ALT/SGPT) 44IU/L 47IU/L Alkaline Phosphatase 99IU/L 94IU/L Troponin I 0.058ng/ml 0.071ng/ml Total Protein 6.7g/dl 6.5g/dl Albumin 3.6g/dl 3.4g/dl Globulin 3.10g/dl Albumin/Globulin Ratio 1.16 Bedside Glucose 167mg/dL Hemoglobin A1c 8.0% Triglycerides Level 67mg/dl Cholesterol Level 122mg/dl LDL Cholesterol, Calculated 71mg/dl HDL Cholesterol 38mg/dl Cholesterol/HDL Ratio 3.2RATIO Blood Gas Specimen Source Blood arterial Arterial Blood Date Drawn 05/07/2017 8:10:53 AM Arterial Blood pH (Temp corrected) 7.399 Arterial Blood pCO2 (Temp correct) 44.1mmhg Arterial Blood pO2 (Temp corrected) 79.7mmHG Arterial Blood HCO3 26.6mmol/L Arterial Blood Base Excess 1.4mmol/L Arterial Blood Oxygen Saturation 95.9mmHG Nahid Test ACCEPTAB Arterial Blood Gas Puncture Site Right Radial Arterial Blood Carboxyhemoglobin 0.9% Arterial Blood Methemoglobin 0.2% Blood Gas A-a O2 Differential 60.7mmHg Oxyhemoglobin Percent 94.8% Total Hemoglobin 15.2g/dl Blood Gas Temperature 37.0C Blood Gas Modality NASAL CANNULA FiO2 27.0% Blood Gas Notified Whom JLD Blood Gas Notified Time 05/07/2017 8:25:36 AM Test 05/07/17 07:04 Blood Gas Specimen Source Blood arterial Arterial Blood Date Drawn 05/06/2017 9:36:00 PM Arterial Blood pH (Temp corrected) 7.413 Arterial Blood pCO2 (Temp correct) 43.8mmhg Arterial Blood pO2 (Temp corrected) 119.7mmHG Arterial Blood HCO3 27.3mmol/L Arterial Blood Base Excess 2.3mmol/L Arterial Blood Oxygen Saturation 98.1mmHG Nahid Test ACCEPTAB Arterial Blood Gas Puncture Site Right Radial Arterial Blood Carboxyhemoglobin 1.3% Arterial Blood Methemoglobin 0.3% Blood Gas A-a O2 Differential 78.9mmHg Oxyhemoglobin Percent 96.5% Total Hemoglobin 15.4g/dl Blood Gas Temperature 37.0C Blood Gas Respiration Rate 12.0 Blood Gas Actual Respiration Rate 18 Blood Gas Modality MASK - BIPAP FiO2 35.0% Blood Gas Pressure Support 11 Blood Gas IPAP/EPAP Ratio 16/ Blood Gas Notified Whom MISTY TOM Blood Gas Notified Time 05/06/2017 9:53:12 PM Current Medications Medications (Trade) Dose Ordered Sig/Arely Route PRN Reason Start Time Stop Time Status Last Admin Dose Admin Nitroglycerin (Nitroglycerin (Sl Tab) 0.4 Mg) 25 tab STK-MED ONCE .ROUTE 05/06/17 20:41 05/06/17 21:59 DC Carvedilol (Coreg) 6.25 mg ONCE PO 05/06/17 22:30 05/06/17 22:31 DC 05/06/17 23:06 Lisinopril (Zestril) 20 mg ONCE PO 05/06/17 22:30 05/06/17 22:31 DC 05/06/17 23:06 Furosemide (Lasix) 40 mg ONCE IV 05/06/17 22:30 05/06/17 23:59 DC 05/06/17 23:05 Nitroglycerin (Nitroglycerin 2% Oint) 1 inch ONCE TD 05/06/17 22:30 05/06/17 23:59 DC 05/06/17 23:06 Aspirin (Aspirin) 162 mg ONCE PO 05/06/17 22:30 05/06/17 23:59 DC 05/06/17 23:06 Hydralazine HCl (Apresoline) 20 mg STK-MED ONCE .ROUTE 05/06/17 22:54 05/06/17 22:55 DC Hydralazine HCl (Apresoline) 20 mg ONCE ONCE IV 05/06/17 23:00 05/06/17 23:10 DC 05/06/17 23:19 Carvedilol (Coreg) 6.25 mg BID PO 05/07/17 09:00 Furosemide (Lasix) 40 mg ONCE ONCE IV 05/07/17 08:00 05/07/17 08:01 DC Albuterol/ Ipratropium (Duoneb) 3 ml Q6H RESP THERAPY HHN 05/07/17 02:00 05/07/17 02:15 Miscellaneous Information (* Miscellaneous Pharmacy Order) Discontinue current oral sulfonylur... ONCE ONCE XX 05/07/17 00:30 05/07/17 00:46 DC Diagnostic Test (Pha) (Accu-Chek) 1 ea 02 XX 05/07/17 02:00 05/07/17 02:00 Miscellaneous Information (* Miscellaneous Pharmacy Order) HYPOGLYCEMIA PROTOCOL w... ONCE ONCE XX 05/07/17 00:30 05/07/17 00:46 DC Insulin Aspart (Novolog Insulin Pen) NOVOLOG *MODERATE* ALGORITHM WITH MEALS BEDTIME SC 05/07/17 08:00 Miscellaneous Information (* Miscellaneous Pharmacy Order) Discontinue all previ... ONCE ONCE XX 05/07/17 00:30 05/07/17 00:46 DC Hydralazine HCl (Apresoline) 10 mg Q6 PRN IV ELEVATED BLOOD PRESSURE 05/07/17 00:30 Ondansetron HCl (Zofran Inj) 4 mg Q6 PRN IV NAUSEA AND/OR VOMITING 05/07/17 00:30 Insulin Glargine 5 unit 5 unit BID@08,20 SC 05/07/17 08:00 Ceftriaxone Sodium 50 ml @ 100 mls/hr DAILY IVPB 05/07/17 09:00 Azithromycin/ Sodium Chloride (Zithromax/NS) 250 ml @ 250 mls/hr ONCE IVPB 05/07/17 01:00 05/07/17 01:59 DC 05/07/17 01:00 Atorvastatin Calcium (Lipitor) 40 mg QHS ONCE PO 05/07/17 21:00 05/07/17 21:01 Procedures/MDM EKG #1 read by me: Rate/Rhythm: Regular rate and rhythm at a normal rate Intervals: Normal Impression: No evidence of ischemia or arrhythmia EKG #2 read by me: Rate/Rhythm: Regular rate and rhythm at a normal rate Intervals: Normal Impression: No evidence of ischemia or arrhythmia Chest X-ray 1V Interpreted by me: Soft Tissue: No acute abnormalities Bones: No acute abnormalities Mediastinum/Cardiac Silhouette/Lungs: Pulmonary edema and cardiomegaly Smoking Cessation Therapy: Pt. was lectured for greater than 3 minutes on the health risks of continued smoking and the benefits of cessation. Patient is a 47-year-old male who presents with acute congestive heart failure exacerbation. He was given aspirin, nitroglycerin paste, nitroglycerin sublingual, and Lasix IV. However as he was in the emergency department his respiratory status declined and he needed to be placed on BiPAP therapy and an ABG was obtained. Initially because of his insurance being [facility] the patient was going to be transferred to [facility]. However once he worsened and required BiPAP therapy I believe the patient was unstable for transfer and therefore the patient will be admitted to [facility] under the care of Dr. Craig. The patient will be admitted to a telemetry bed. I consider intubation but at this time would like to hold off on intubation and see if the positive pressure from the BiPAP machine will help with the pulmonary edema which I believe it well. There is a concern for acute coronary syndrome given the patient's chest pain and shortness of breath. He was given aspirin and nitroglycerin empirically. He did have elevated blood pressures which were treated with the nitroglycerin. Critical Care: Time: 35 minutes excluding all billable procedures. Treatments/Evaluations: Close monitoring and treatment of unstable vital signs, cardiorespiratory, and neurologic status, while maintaining tight balance of fluid, respiratory, and cardiac interventions. Departure Diagnosis: Primary Impression: Shortness of breath Additional Impressions: Acute CHF Congestive heart failure type: unspecified congestive heart failure type Qualified Code: I50.9 - Acute congestive heart failure, unspecified congestive heart failure type Respiratory failure Chronicity: acute Respiratory failure complication: unspecified whether with hypoxia or hypercapnia Qualified Code: J96.00 - Acute respiratory failure , unspecified whether with hypoxia or hypercapnia Condition: Serious WELLINGTON HENRIQUEZ MD May 07, 2017 09:25
[2017-05-07 11:30] VITALS: BP 115/95; PULSE 77; RESP 22
[2017-05-07 11:45] VITALS: Ht 172.7 cm; Wt 113.6 kg
[2017-05-07] MEDS ORDERED: ATORVASTATIN 40 MG TAB PO ONE (21:00)
== END 2017-05-07 12:51 | disposition short-term general hospital (02) ==
LOC: E/R 19:07
DX: I50.9 Heart failure, unspecified (principal); J96.00 Acute respiratory failure, unspecified whether with hypoxia or hypercapnia; I10 Essential (primary) hypertension; E11.9 Type 2 diabetes mellitus without complications; F17.210 Nicotine dependence, cigarettes, uncomplicated; Z79.4 Long term (current) use of insulin; Z79.84 Long term (current) use of oral hypoglycemic drugs
CPT/HCPCS: 36600; 71010; 80048; 80053; 80061; 80076; 82803; 82962; 83036; 84484; 85025; 85610; 85730; 93005; 94640; 94660; 94664; 96372; 96374; 96375; 96376; J0360; J0456; J0696; J1815; J1940; J7050; Z7502; Z7610

== ENCOUNTER 2017-06-13 23:58 | Emergency (ER) | payer OTHER ==
[~2017-06-13] VITALS: Ht 162.6 cm; Wt 115.4 kg
[~2017-06-13 23:58] MED LIST changes: -RIVA20TA PO; +RIVA20TA5 PO
[2017-06-14 00:03] VITALS: Ht 162.6 cm; Wt 115.4 kg
[2017-06-14] MEDS ORDERED: IPRATROPIUM (NEB) 0.5 MG/2.5 ML AMP INH STA (00:55)
[2017-06-14] MEDS ORDERED: ALBUTEROL 0.083% (NEB) 2.5 MG/3 ML AMP INH STA (00:55)
[2017-06-14 01:19] LABS: MODE NASAL CANNULA; MetHgb Venous 0.2 %; Sample Type Blood venous; Venous Fraction OxyHgb 87.8 %
[2017-06-14 01:35] LABS: BASOPHIL # 0.1 10^3/ul (0.0-0.1); BASOPHILS % 0.8 % (0.0-2.0); EOSINOPHILS # 0.2 10^3/ul (0.0-0.5); EOSINOPHILS % 1.5 % (0.0-7.0); HEMATOCRIT 45.3 % (42.0-52.0); HEMOGLOBIN 14.7 g/dl (14.0-18.0); LYMPHOCYTES # 1.1 10^3/ul (0.8-2.9); LYMPHOCYTES % 10.2 % (15.0-51.0); MEAN CORPUSCULAR HEMOGLOBIN 28.5 pg (29.0-33.0); MEAN CORPUSCULAR HGB CONC 32.5 g/dl (32.0-37.0); MEAN PLATELET VOLUME 11.1 fl (7.4-10.4); MONOCYTE # 1.4 10^3/ul (0.3-0.9); MONOCYTES % 12.5 % (0.0-11.0); NEUTROPHIL # 8.2 10^3/ul (1.6-7.5); NEUTROPHILS % 74.7 % (39.0-77.0); PLATELET COUNT 225 10^3/UL (140-415); RED BLOOD COUNT 5.15 10^6/ul (4.70-6.10); RED CELL DISTRIBUTION WIDTH 16.3 % (11.5-14.5)
--- NOTE | 2017-06-14 01:45 | RADRPT ---
PROCEDURE: XR Chest. CLINICAL INDICATION: Shortness of breath. TECHNIQUE: Single frontal chest x-ray. COMPARISON: 05/06/2017 FINDINGS: Heart is enlarged.. There is mild pulmonary vascular congestion.. There is no pleural effusion. T here is no pneumothorax. The osseous structures are unremarkable. IMPRESSION: Cardiomegaly. Mild pulmonary vascular congestion. RPTAT: HMVK .Anil Roberts MD, MD Date Time Electronically viewed and signed by .Anil Roberts MD, on 06/14/2017 01:45 .K/
[2017-06-14 01:57] LABS: ALBUMIN 4.2 g/dl (3.3-4.9); ALBUMIN/GLOBULIN RATIO 1.23; BILIRUBIN,INDIRECT 1.7 mg/dl (0-1.1); BILIRUBIN,TOTAL 1.7 mg/dl (0.2-1.3); CALCIUM 9.4 mg/dl (8.4-10.2); CREATININE 1.26 mg/dl (0.61-1.24); TOTAL PROTEIN 7.6 g/dl (6.1-8.1)
[2017-06-14 02:09] LABS: TROPONIN-I 0.072 ng/ml (0.00-0.12)
--- NOTE | 2017-06-14 03:06 | ERD ---
ER Documentation Chief Complaint Chief Complaint shortness od breath today, hx- copd HPI 47 year old male with a history of COPD and CHF home O2 dependent presenting to the ED with complaints of shortness of breath. He ran out of his albuterol inhaler yesterday, which he uses a few times daily at baseline. Today he did not have his inhaler,which he feels is the reason he is feeling this way. Denies associated chest pain, fever, chills, cough. No increased O2 requirements. ROS All systems reviewed and are negative except as per history of present illness. Medications Home Meds Active Scripts Albuterol Sulfate* (Proair HFA*) 8.5 Gm Hfa.aer.ad, 2 PUFF INH Q4H Y for WHEEZING AND SOB, #1 INHALER Prov:MAYTE BATES MD 06/14/17 Lancing Device/Lancets (ACCU-CHEK FASTCLIX LANCET KIT) 1 Each Kit, 1 EACH [facility] AC BREAKFAST LUNCH, #1 Prov:MAYTE BATES MD 06/14/17 Rivaroxaban* (Xarelto*) 20 Mg Tablet, 20 MG PO WITH DINNER for 30 Days, TAB 3 Refills Prov:SEAN TEJADA 04/22/17 Nicotine* (Nicotine* Patch) 21 mg/day Patch, 1 EACH TD DAILY for 30 Days, PATCH 3 Refills Prov:SEAN TEJADA 04/22/17 Reported Medications NPH, Human Insulin Isophane (Humulin N Kwikpen) 100 Unit/1 Ml Insuln.pen, 40 UNIT SQ DAILY, EA 04/20/17 Potassium Chloride* (Potassium Chloride*) 20 Meq/15 Ml Liquid, 20 MEQ PO DAILY, ML 04/20/17 Potassium Citrate* (Potassium Citrate* ER) 10 Meq Tablet.sa, 10 MEQ PO DAILY, TAB.SA 04/20/17 Furosemide* (Furosemide*) 40 Mg/5 Ml Solution, 40 MG PO DAILY, #150 ML 04/20/17 Carvedilol* (Carvedilol*) 3.125 Mg Tablet, 3.125 MG PO BID, #60 TAB 04/20/17 Meloxicam* (Meloxicam*) 7.5 Mg/5 Ml Oral.susp, 15 MG PO DAILY, #300 ML 04/20/17 Metformin Hcl* (Metformin Hcl*) 500 Mg Tablet, 500 MG PO BID WITH MEALS, #90 TAB 04/20/17 Lisinopril* (Lisinopril*) 20 Mg Tablet, 20 MG PO DAILY, #30 TAB 04/20/17 Gabapentin* (Gabapentin*) 300 Mg Capsule, 600 MG PO TID, #180 CAP 04/20/17 Atorvastatin* (Atorvastatin*) 40 Mg Tablet, 40 MG PO QHS, #30 TAB 04/20/17 Allergies Allergies: Coded Allergies: No Known Allergy (Unverified , 05/07/17) PMhx/Soc History of Surgery: Yes (ANGIOPLASTY, BILATERAL ARMS) Anesthesia Reaction: No Hx Neurological Disorder: No Hx Respiratory Disorders: Yes (PE) Hx Cardiac Disorders: Yes (HTN, HYPERLIPIDEMIA) Hx Psychiatric Problems: No Hx Miscellaneous Medical Probl: Yes (DM ) Hx Alcohol Use: Yes Hx Substance Use: No Hx Tobacco Use: Yes Smoking Status: Current every day smoker FmHx Family History: No diabetes Physical Exam Vitals Vital Signs Date Time Temp Pulse Resp B/P Pulse Ox O2 Delivery O2 Flow Rate FiO2 06/14/17 03:28 79 20 130/96 95 Nasal Cannula 2.0 06/14/17 01:24 2.0 06/14/17 01:23 83 20 98 Nasal Cannula 2.0 06/14/17 01:11 Nasal Cannula 2 06/14/17 00:36 87 20 135/81 96 Nasal Cannula 2.0 06/14/17 00:36 Nasal Cannula 2.0 06/14/17 00:03 98.2 92 20 163/99 96 Physical Exam Const: appears dyspneic but able to speak in full sentences. no diaphoresis Head: Atraumatic Eyes: Normal Conjunctiva ENT: Normal External Ears, Nose and Mouth. Neck: Full range of motion..~ No meningismus. Resp: diminished but Clear to auscultation bilaterally. No audible wheezing or rales Cardio: Regular rate and rhythm, no murmurs Abd: Soft, non tender, non distended. Normal bowel sounds Skin: No petechiae or rashes Back: No midline or flank tenderness Ext: No cyanosis, or edema Neur: Awake and alert. Normal speech. Psych: Normal Mood and Affect Result Diagram: 12/15/17 0115 12/15/17 0115 Results 24 hrs Laboratory Tests Test 06/14/17 00:55 06/14/17 01:15 Blood Gas Specimen Source Blood venous Arterial Blood Date Drawn 06/14/2017 1:10:11 AM Arterial Blood Gas Puncture Site VENOUS LINE Nahid Test N/A Venous Blood pH 7.411 Venous Blood pCO2 (Temp Corrected) 40.9mmHG Venous Blood pO2 (Temp Corrected) 59.8mmHG Venous Blood HCO3 25.4mmol/L Venous Blood Oxygen Saturation 90.7mmHG Venous Blood Base Excess 0.7mmol/L Venous Blood Total Hemoglobin 15.0g/dl Venous Blood Oxyhemoglobin 87.8% Venous Blood Methemoglobin 0.2% Carboxyhemoglobin 3.0% Blood Gas Temperature 37.0C Blood Gas Modality NASAL CANNULA FiO2 27.0% Blood Gas Notified Whom MG Blood Gas Notified Time 06/14/2017 1:19:42 AM White Blood Count 11.010^3/ul Red Blood Count 5.1510^6/ul Hemoglobin 14.7g/dl Hematocrit 45.3% Mean Corpuscular Volume 88.0fl Mean Corpuscular Hemoglobin 28.5pg Mean Corpuscular Hemoglobin Concent 32.5g/dl Red Cell Distribution Width 16.3% Platelet Count 00632^3/UL Mean Platelet Volume 11.1fl Neutrophils % 74.7% Lymphocytes % 10.2% Monocytes % 12.5% Eosinophils % 1.5% Basophils % 0.8% Nucleated Red Blood Cells % 0.0/100WBC Neutrophils # 8.210^3/ul Lymphocytes # 1.110^3/ul Monocytes # 1.410^3/ul Eosinophils # 0.210^3/ul Basophils # 0.110^3/ul Nucleated Red Blood Cells # 0.010^3/ul Sodium Level 143mmol/L Potassium Level 4.0mmol/L Chloride Level 102mmol/L Carbon Dioxide Level 28mmol/L Anion Gap 17 Blood Urea Nitrogen 24mg/dl Creatinine 1.26mg/dl Glucose Level 118mg/dl Calcium Level 9.4mg/dl Total Bilirubin 1.7mg/dl Direct Bilirubin 0.00mg/dl Indirect Bilirubin 1.7mg/dl Aspartate Amino Transf (AST/SGOT) 34IU/L Alanine Aminotransferase (ALT/SGPT) 38IU/L Alkaline Phosphatase 94IU/L Troponin I 0.072ng/ml B-Type Natriuretic Peptide 2670PG/ML Total Protein 7.6g/dl Albumin 4.2g/dl Globulin 3.40g/dl Albumin/Globulin Ratio 1.23 Current Medications Medications (Trade) Dose Ordered Sig/Arely Route PRN Reason Start Time Stop Time Status Last Admin Dose Admin Albuterol (Proventil 0.083% (Neb)) 5 mg ONCE STAT INH 06/14/17 00:55 06/14/17 00:56 DC 06/14/17 01:23 Ipratropium [place] (Atrovent 0.02% (Neb)) 0.5 mg ONCE STAT INH 06/14/17 00:55 06/14/17 00:56 DC 06/14/17 01:23 Procedures/MDM EKG: NSR Left axis deviation Incomplete LBBB CXR:Cardiomegaly. Mild pulmonary vascular congestion. Labs: CBC unremarkable CMP: slight elevation in BUN and Creatinine from baseline BNP elevated Trop negative VBG: no acidosis, alkalosis, or hypercapnia MDM Shortness of breath most consistent with COPD exacerbation after running out of albuterol. No hypoxia on home baseline o2, however he was tachypneic. May also have a component of CHF. Considered URI, pneumonia, allergic reaction, PE, ACS, pericardial effusion, but less likely based on history and physical. Albuterol neb x 1 given with complete improvement of his symptoms. Patients symptoms have stabilized and pt hemodynamically stable with good saturations. Patient is appropriate for outpatient management and follow up with PCP in 1-2 days. Recommended follow up with pulmonology if using albuterol so frequently, as he has never been referred to a specialist despite being on O2. Albuterol Rx refilled. Return precautions discussed. Departure Diagnosis: Primary Impression: Shortness of breath Condition: Stable EKMAYTE AVILES MD Jun 14, 2017 03:06
[2017-06-14] MEDS ORDERED: LANC1KIT83 MC (03:09)
[2017-06-14] MEDS ORDERED: ALBU8.5H3 INH (03:09)
[2017-06-14 03:28] VITALS: BP 130/96; PULSE 79; RESP 20
== END 2017-06-14 03:34 | disposition home or self-care (01) ==
LOC: E/R 23:58
DX: R06.02 Shortness of breath (principal); I10 Essential (primary) hypertension; E11.9 Type 2 diabetes mellitus without complications; F17.210 Nicotine dependence, cigarettes, uncomplicated; J44.9 Chronic obstructive pulmonary disease, unspecified; Z79.01 Long term (current) use of anticoagulants; Z79.4 Long term (current) use of insulin
CPT/HCPCS: 36415; 71010; 80053; 82803; 83880; 84484; 85025; 93005; 94664; Z7502; Z7610